=== PATIENT | male | born 2000 | race Caucasian/White ===

== ENCOUNTER 2020-07-17 04:58 | Emergency (ER) | payer SELFPAY ==
[~2020-07-17] VITALS: Ht 165.1 cm; Wt 72.6 kg
[2020-07-17 05:04] VITALS: BP 138/85
[2020-07-17 07:10] VITALS: BP 132/78
== END 2020-07-17 07:10 ==
LOC: MED 04:58
DX: S82.891A Other fracture of right lower leg, initial encounter for closed fracture (principal); V49.9XXA Car occupant (driver) (passenger) injured in unspecified traffic accident, initial encounter; Y93.89 Activity, other specified; Y92.89 Other specified places as the place of occurrence of the external cause; Y99.8 Other external cause status
CPT/HCPCS: 29505; 73590; 73610; 99284